=== PATIENT | female | born 2005 | race Asian ===

== ENCOUNTER 2023-03-09 00:05 | Emergency (ER) | payer OTHER ==
[~2023-03-09] VITALS: Ht 165.1 cm; Wt 49.9 kg
[2023-03-09 00:08] VITALS: BP 116/85; PULSE 107; RESP 16; TEMP 96; O2SAT 98
[2023-03-09 01:53] VITALS: O2SAT 98
[2023-03-09 02:11] VITALS: PULSE 77
== END 2023-03-09 06:13 | disposition home or self-care (01) ==
LOC: MED 00:05
DX: F10.129 Alcohol abuse with intoxication, unspecified (principal); Y90.9 Presence of alcohol in blood, level not specified
CPT/HCPCS: 99283